=== PATIENT | female | born 1945 | race Caucasian/White ===

== ENCOUNTER 2018-07-24 18:01 | Observation (INO) | payer MEDICARE, BC ==
[2018-07-24] MEDS ORDERED: Sodium Chloride 0.9% 10 ML Syringe FLUSH PRN (18:45)
[2018-07-24] MEDS ORDERED: Sodium Chloride 0.9% 2.5 ML Syringe FLUSH PRN (18:45)
--- NOTE | 2018-07-24 18:53 | EDM.PDOC ---
ED HPI GENERAL MEDICAL PROBLEM - General Chief Complaint: Neurological Problem Stated Complaint: DIABETIC Time Seen by Provider: 07/24/18 18:37 - History of Present Illness INITIAL COMMENTS - FREE TEXT/NARRATIVE: HISTORY AND PHYSICAL: History of present illness: The patient is a 72-year-old female who lives in [place] and is here visiting her family and presents with family for confusional speech that started about 1-1/2-2 hours ago. According to the daughter she was last seen normal last evening and when the daughter came home she had already gone to bed and was asleep. The patient slept all day, which is not unusual for her, and she awoke and went and found the daughter and started speaking with confused speech about an hour and a half to 2 hours ago. The patient was moving all extremities she was ambulating without difficulty or ataxia and her speech was not slurred nor did she have a facial droop. She was saying inappropriate things like her son needs to brush her teeth and everything is fine when I ask her who the people are in the room with her. She will not specifically answer questions at one point she did say that she is not making sense. She denies any headache or chest pain and has had no shortness of breath and according to the family she hasn't not had any systemic issues. The daughter states that initially she did complain of some visual changes in her right eye which quickly resolved and she has not complained of that since. The patient is a diabetic and uses insulin and has not checked her blood sugar recently so the family thought it was maybe a blood sugar problem causing this to happen. Patient here got into the wheelchair and got out of the wheelchair got into the bed and moved easily without any distress or assistance. Due to the symptoms a stroke" was called Review of systems: As per history of present illness and below otherwise all systems reviewed and negative. Past medical history: As per history of present illness and as reviewed below otherwise noncontributory. Surgical history: As per history of present illness and as reviewed below otherwise noncontributory. Social history: No reported history of drug or alcohol abuse. Family history: As per history of present illness and as reviewed below otherwise noncontributory. Physical exam: General: Well-developed well-nourished female who is nontoxic and speaking without slurred speech. Vital signs are noted by me HEENT: Atraumatic, normocephalic, pupils reactive, negative for conjunctival pallor or scleral icterus, mucous membranes moist, throat clear, neck supple, nontender, trachea midline. Lungs: Clear to auscultation, breath sounds equal bilaterally, chest nontender. No wheezing or stridor Heart: S1S2, regular, negative for clicks, rubs, or JVD. Abdomen: Soft, nondistended, nontender. Negative for masses or hepatosplenomegaly. Negative for costovertebral tenderness. Pelvis: Stable nontender. Genitourinary: Deferred. Rectal: Deferred. Extremities: Atraumatic, negative for cords or calf pain. Neurovascular unremarkable. The patient was all extremities without defects or deficits Neuro: Awake, alert, and speaking without slurred speech. Cranial nerves II through XII unremarkable. Cerebellum unremarkable. Motor and sensory unremarkable throughout. Exam nonfocal. Patient's conversational speech is very choppy and confused and inappropriate. She strings together inappropriate sentences but does not speak any words salad. Skin: Turgor is normal and there are no overt rashes or lesions Diagnostics: NIHSS CT scan of the head EKG CBC CMP INR troponin TSH UA chest x-ray CTA of the head and neck, please see below note Therapeutics: IV O2 monitor swallow assessment per nursing aspirin I immediately discussed with the family at bedside that as the last time she was seen normal was last evening she is not a candidate for TPA. She was not seen last evening and was not seen at all throughout the course of today and she was sleeping and was only noted to have the symptoms an hour and a half to 2 hours ago. The time of onset is unclear. The family is accepting of this and we will continue with our workup. I went back to reevaluate the patient and the formal stroke scale is a 5 with the patient losing for orientation some visual and inability to describe events in the pictures. The patient is having intermittent periods of normal speech where she can straining sentences together with coherency and then she will deviate off saying statements that are not linked together and are confused. At 1912 discussed this with the neurologist at [facility] in [place], Dr. Wiggins , and he feels that despite the fact that these symptoms are stuttering she is still not a candidate for TPA as her last normal time was last evening. He recommends doing CTA of the head and neck and if that is normal and she can stay here at our hospital and if abnormal he wants to be recontacted. 2020: Case was discussed with our hospitalist Dr Vidales who is aware of the pending tests and accepts the patient for admission pending those test results being negative. CTA's and endorsed to Dr. Salinas who will check those results and alter disposition as indicated. . Impression: Acute confusional state with expressive aphasia rule out CVA Definitive disposition and diagnosis as appropriate pending reevaluation and review of above. - Related Data Allergies Allergy/AdvReac Type Severity Reaction Status Date / Time No Known Allergies Allergy Verified 07/24/18 18:50 Home Meds: Home Meds . [Unable to Verify Home Med List] 07/24/18 [History] ED ROS GENERAL - Review of Systems Review Of Systems: ROS reveals no pertinent complaints other than HPI. ED EXAM, GENERAL - Physical Exam Exam: See Below (see Dictation) Course - Vital Signs Last Recorded V/S: Last Vital Signs Temp 36.2 C 07/24/18 19:13 Pulse 93 07/24/18 19:13 Resp 20 07/24/18 19:13 BP 148/82 H 07/24/18 19:13 Pulse Ox 93 L 07/24/18 19:13 - Orders/Labs/Meds Orders: Active Orders 24 hr Category Date Time Status Blood Glucose Check, Bedside [RC] ONETIME Care 07/24/18 18:45 Active Cardiac Monitoring [RC] . DIRECTED Care 07/24/18 18:45 Active EKG Documentation Completion [RC] STAT Care 07/24/18 18:45 Active Oxygen Therapy, ED [RC] ASDIRECTED Care 07/24/18 18:45 Active Pulse Oximetry [RC] ASDIRECTED Care 07/24/18 18:45 Active Ang Head [CT] Stat Exams 07/24/18 19:17 Ordered CTA Neck W & W/O Contrast [Ang Neck] [CT] Stat Exams 07/24/18 19:17 Ordered Chest 1V Frontal [CR] Stat Exams 07/24/18 18:46 Taken Head wo Cont [CT] Stat Exams 07/24/18 18:46 Taken UA W/MICROSCOPIC [URIN] Stat Lab 07/24/18 18:46 Ordered Sodium Chloride 0.9% [Saline Flush] Med 07/24/18 18:45 Active 10 ml FLUSH ASDIRECTED PRN Sodium Chloride 0.9% [Saline Flush] Med 07/24/18 18:45 Active 2.5 ml FLUSH ASDIRECTED PRN Saline Lock Insert [OM.PC] Stat Oth 07/24/18 18:45 Ordered Medication Orders Sodium Chloride (Saline Flush) 10 ml FLUSH ASDIRECTED PRN PRN Reason: Keep Vein Open Sodium Chloride (Saline Flush) 2.5 ml FLUSH ASDIRECTED PRN PRN Reason: Keep Vein Open Labs: Laboratory Tests 07/24/18 07/24/18 07/24/18 Range/Units 18:33 18:56 18:56 WBC 13.35 H (4.0-11.0) K/uL RBC 4.10 L (4.30-5.90) M/uL Hgb 13.5 (12.0-16.0) g/dL Hct 42.6 (36.0-46.0) % MCV 103.9 H (80.0-98.0) fL MCH 32.9 H (27.0-32.0) pg MCHC 31.7 (31.0-37.0) g/dL RDW Std Deviation 61.1 (28.0-62.0) fl RDW Coeff of Rosanna 16 H (11.0-15.0) % Plt Count 190 (150-400) K/uL MPV 10.10 (7.40-12.00) fL Neut % (Auto) 34.3 L (48.0-80.0) % Lymph % (Auto) 58.1 H (16.0-40.0) % Converse % (Auto) 5.7 (0.0-15.0) % Eos % (Auto) 1.5 (0.0-7.0) % Baso % (Auto) 0.4 (0.0-1.5) % Neut # (Auto) 4.6 (1.4-5.7) K/uL Lymph # (Auto) 7.8 H (0.6-2.4) K/uL Converse # (Auto) 0.8 (0.0-0.8) K/uL Eos # (Auto) 0.2 (0.0-0.7) K/uL Baso # (Auto) 0.1 (0.0-0.1) K/uL Nucleated RBC % 0.0 /100WBC Nucleated RBCs # 0 K/uL INR 0.94 Sodium (136-145) mmol/L Potassium (3.5-5.1) mmol/L Chloride (98-107) mmol/L Carbon Dioxide (21.0-32.0) mmol/L BUN (7.0-18.0) mg/dL Creatinine (0.6-1.0) mg/dL Est Cr Clr Drug Dosing Estimated GFR (MDRD) ml/min Glucose (74-106) mg/dL POC Glucose 227 H (60-110) mg/dL Calcium (8.5-10.1) mg/dL Total Bilirubin (0.2-1.0) mg/dL AST (15-37) IU/L ALT (14-63) IU/L Alkaline Phosphatase (46-116) U/L Troponin I (0.000-0.056) ng/mL Total Protein (6.4-8.2) g/dL Albumin (3.4-5.0) g/dL Globulin (2.0-3.5) g/dL Albumin/Globulin Ratio (1.3-2.8) TSH 3rd Generation (0.36-3.74) uIU/mL 07/24/18 Range/Units 18:56 WBC (4.0-11.0) K/uL RBC (4.30-5.90) M/uL Hgb (12.0-16.0) g/dL Hct (36.0-46.0) % MCV (80.0-98.0) fL MCH (27.0-32.0) pg MCHC (31.0-37.0) g/dL RDW Std Deviation (28.0-62.0) fl RDW Coeff of Rosanna (11.0-15.0) % Plt Count (150-400) K/uL MPV (7.40-12.00) fL Neut % (Auto) (48.0-80.0) % Lymph % (Auto) (16.0-40.0) % Converse % (Auto) (0.0-15.0) % Eos % (Auto) (0.0-7.0) % Baso % (Auto) (0.0-1.5) % Neut # (Auto) (1.4-5.7) K/uL Lymph # (Auto) (0.6-2.4) K/uL Converse # (Auto) (0.0-0.8) K/uL Eos # (Auto) (0.0-0.7) K/uL Baso # (Auto) (0.0-0.1) K/uL Nucleated RBC % /100WBC Nucleated RBCs # K/uL INR Sodium 144 (136-145) mmol/L Potassium 3.9 (3.5-5.1) mmol/L Chloride 105 (98-107) mmol/L Carbon Dioxide 30.2 (21.0-32.0) mmol/L BUN 17 (7.0-18.0) mg/dL Creatinine 0.9 (0.6-1.0) mg/dL Est Cr Clr Drug Dosing TNP Estimated GFR (MDRD) > 60.0 ml/min Glucose 240 H (74-106) mg/dL POC Glucose (60-110) mg/dL Calcium 9.0 (8.5-10.1) mg/dL Total Bilirubin 0.3 (0.2-1.0) mg/dL AST 28 (15-37) IU/L ALT 62 (14-63) IU/L Alkaline Phosphatase 138 H (46-116) U/L Troponin I < 0.050 (0.000-0.056) ng/mL Total Protein 6.6 (6.4-8.2) g/dL Albumin 3.4 (3.4-5.0) g/dL Globulin 3.2 (2.0-3.5) g/dL Albumin/Globulin Ratio 1.1 L (1.3-2.8) TSH 3rd Generation 1.37 (0.36-3.74) uIU/mL Meds: Medications Generic Name Dose Route Start Last Admin Trade Name Freq PRN Reason Stop Dose Admin Sodium Chloride 10 ml 07/24/18 18:45 Saline Flush FLUSH ASDIRECTED PRN Keep Vein Open Sodium Chloride 2.5 ml 07/24/18 18:45 Saline Flush FLUSH ASDIRECTED PRN Keep Vein Open Discontinued Medications Generic Name Dose Route Start Last Admin Trade Name Freq PRN Reason Stop Dose Admin Aspirin 325 mg 07/24/18 19:38 07/24/18 19:42 Aspirin PO 07/24/18 19:39 325 mg ONETIME ONE Administration Departure - Departure Time of Disposition: 20:32 Disposition: Refer to Observation Condition: Good Clinical Impression: Confusional state, Expressive aphasia - Discharge Information Referrals: PCP,None [Primary Care Provider] - Forms: ED Department Discharge - My Orders Last 24 Hours: My Active Orders 07/24/18 18:45 Blood Glucose Check, Bedside [RC] ONETIME Cardiac Monitoring [RC] . DIRECTED EKG Documentation Completion [RC] STAT Oxygen Therapy, ED [RC] ASDIRECTED Pulse Oximetry [RC] ASDIRECTED Sodium Chloride 0.9% [Saline Flush] 10 ml FLUSH ASDIRECTED PRN Sodium Chloride 0.9% [Saline Flush] 2.5 ml FLUSH ASDIRECTED PRN Saline Lock Insert [OM.PC] Stat 07/24/18 18:46 Chest 1V Frontal [CR] Stat Head wo Cont [CT] Stat UA W/MICROSCOPIC [URIN] Stat 07/24/18 19:17 Ang Head [CT] Stat CTA Neck W & W/O Contrast [Ang Neck] [CT] Stat - Assessment/Plan Last 24 Hours: My Active Orders 07/24/18 18:45 Blood Glucose Check, Bedside [RC] ONETIME Cardiac Monitoring [RC] . DIRECTED EKG Documentation Completion [RC] STAT Oxygen Therapy, ED [RC] ASDIRECTED Pulse Oximetry [RC] ASDIRECTED Sodium Chloride 0.9% [Saline Flush] 10 ml FLUSH ASDIRECTED PRN Sodium Chloride 0.9% [Saline Flush] 2.5 ml FLUSH ASDIRECTED PRN Saline Lock Insert [OM.PC] Stat 07/24/18 18:46 Chest 1V Frontal [CR] Stat Head wo Cont [CT] Stat UA W/MICROSCOPIC [URIN] Stat 07/24/18 19:17 Ang Head [CT] Stat CTA Neck W & W/O Contrast [Ang Neck] [CT] Stat
[2018-07-24] MEDS ORDERED: Aspirin 325 MG Tab PO ONE (19:38)
[2018-07-24 19:44] LABS: CHLORIDE,CL 105 mmol/L (98-107); SODIUM,NA 144 mmol/L (136-145)
[2018-07-24] MEDS ORDERED: Iopamidol 755 MG/ML 500 ML Multipack Bottle IVPUSH STA (22:06)
[2018-07-25] MEDS ORDERED: Labetalol 100 MG/20 ML MDV IVPUSH PRN (01:25)
[2018-07-25] MEDS ORDERED: Magnesium Sulfate/Water 2 GM in Premix Bag 1 BAG IV ONE (02:22)
[2018-07-25] MEDS ORDERED: Magnesium Sulfate/Water 50 ML ONE (02:30)
[2018-07-25] MEDS: Insulin Aspart 100 Units/ML 3 ML Pen SUBCUT SCH ×2 (06:41→13:32)
[2018-07-25 08:24] LABS: CHLORIDE,CL 104 mmol/L (98-107); SODIUM,NA 139 mmol/L (136-145)
[2018-07-25] MEDS ORDERED: atorvaSTATin 40 MG Tab PO SCH (09:00)
[2018-07-25] MEDS ORDERED: Insulin Detemir 100 Units/ML 3 ML Pen SUBCUT SCH (09:00)
[2018-07-25] MEDS ORDERED: Omeprazole 20 MG Cap.CR PO SCH (13:00)
[2018-07-25] MEDS ORDERED: Latanoprost 0.005% Ophth Soln 2.5 ML Bottle EYEBOTH SCH (13:00)
[2018-07-25] MEDS ORDERED: FEXOFENADINE 30 MG PO SCH (13:00)
[2018-07-25] MEDS ORDERED: Aspirin 81 MG Tab.Chew PO SCH (13:00)
--- NOTE | 2018-07-25 14:51 | PCM.HP ---
H&P History of Present Illness - General Date of Service: 07/25/18 Admit Problem/Dx: Admission Diagnosis/Problem Admission Diagnosis/Problem Expressive aphasia Source of Information: Patient History Limitations: Reports: No Limitations - History of Present Illness Initial Comments - Free Text/Narative: Patient 72 y old female who came here 2 weeks ago from [place] to visit her son , woke up yesterday afternoon confused , unable to find her words and her speach did not make sense . She was saying words like: my son needs to come to brush my teeth" . She did not have any numbness or weakness but c/o transient problem with her vision in the rt eye. In ER the stroke code was called. ER doctor discussed patient with Neurologist at [facility] was she was not a candidate for TPA and she was admitted to the floor to have work up for stroke Onset of Symptoms: Reports: Sudden Duration of Symptoms: Reports: Hour(s): Location: Reports: Head Bilateral Upper Pain Score (Numeric/FACES): 0 - Related Data Allergies/Adverse Reactions: Allergies Allergy/AdvReac Type Severity Reaction Status Date / Time No Known Allergies Allergy Verified 07/24/18 18:50 Home Medications: Home Meds Aspirin 81 mg PO DAILY 07/24/18 [History] Fexofenadine [Jerrica] 0 mg PO DAILY 07/24/18 [History] Insulin Aspart [Novolog] 30 unit SQ TIDMEALS 07/24/18 [History] Insulin Detemir [Levemir] 55 unit SUBCUT DAILY 07/24/18 [History] Lansoprazole [Prevacid] 30 mg PO DAILY 07/24/18 [History] Latanoprost 2.5 ml OP ASDIRECTED 07/24/18 [History] Levothyroxine 125 mcg PO ACBREAKFAST 07/24/18 [History] Liraglutide [Victoza 3-Stanley] 1.8 mg .XX ASDIRECTED 07/24/18 [History] Lisinopril 2.5 mg PO DAILY 07/24/18 [History] Primadone 50 mg PO BID 07/24/18 [History] QUEtiapine [SEROquel] 25 mg PO BEDTIME 07/24/18 [History] Venlafaxine [Effexor XR] 150 mg PO BEDTIME 07/24/18 [History] atorvaSTATin [Lipitor] 80 mg PO QID 07/24/18 [History] Past Medical History HEENT History: Reports: Cataract, Impaired Vision Musculoskeletal History: Reports: Amputation Other Musculoskeletal History: right middle finger Endocrine/Metabolic History: Reports: Diabetes, Type I - Past Surgical History Female Surgical History: Reports: Hysterectomy Social & Family History - Family History Family Medical History: Noncontributory - Tobacco Use Smoking Status *Q: Never Smoker - Caffeine Use Caffeine Use: Reports: Coffee - Recreational Drug Use Recreational Drug Use: No H&P Review of Systems - Review of Systems: Review Of Systems: See Below General: Reports: No Symptoms HEENT: Reports: No Symptoms Pulmonary: Reports: No Symptoms Cardiovascular: Reports: No Symptoms Gastrointestinal: Reports: No Symptoms Genitourinary: Reports: No Symptoms Musculoskeletal: Reports: No Symptoms Skin: Reports: No Symptoms Psychiatric: Reports: No Symptoms Neurological: Reports: Confusion, Trouble Speaking Hematologic/Lymphatic: Reports: No Symptoms Immunologic: Reports: No Symptoms Exam - Exam Exam: See Below - Vital Signs Vital Signs: Last Vital Signs Temp 96.0 F 07/25/18 12:00 Pulse 86 07/25/18 12:00 Resp 16 07/25/18 12:00 BP 137/65 07/25/18 12:00 Pulse Ox 92 L 07/25/18 12:00 Weight: 181 lb 14.102 oz - Exam General: Alert, Oriented HEENT: Conjunctiva Clear, EOMI Neck: Supple, Trachea Midline Lungs: Clear to Auscultation Cardiovascular: Regular Rate, Regular Rhythm, Normal S1, Normal S2 GI/Abdominal Exam: Normal Bowel Sounds, Non-Tender Back Exam: Normal Inspection Extremities: Other (middle finger amputation rt hand) Skin: Warm, Dry Neurological: Cranial Nerves Intact Neuro Extensive - Mental Status: Alert, Oriented x3 Neuro Extensive - Motor, Sensory, Reflexes: CN II-XII Intact, Normal Gait, Normal Reflexes, Expressive Aphasia, Tremor. No: Tongue Deviation (L), Tongue Deviation (R), Facial palsy (L), Facial Palsy (R), Abnormal Finger to Nose, Motor/Sensory Deficits Psychiatric: Alert, Normal Affect - Patient Data Lab Results Last 24 hrs: Laboratory Results - last 24 hr 07/24/18 07/24/18 07/24/18 Range/Units 18:33 18:56 18:56 WBC 13.35 H (4.0-11.0) K/uL RBC 4.10 L (4.30-5.90) M/uL Hgb 13.5 (12.0-16.0) g/dL Hct 42.6 (36.0-46.0) % MCV 103.9 H (80.0-98.0) fL MCH 32.9 H (27.0-32.0) pg MCHC 31.7 (31.0-37.0) g/dL RDW Std Deviation 61.1 (28.0-62.0) fl RDW Coeff of Rosanna 16 H (11.0-15.0) % Plt Count 190 (150-400) K/uL MPV 10.10 (7.40-12.00) fL Neut % (Auto) 34.3 L (48.0-80.0) % Lymph % (Auto) 58.1 H (16.0-40.0) % Gordon % (Auto) 5.7 (0.0-15.0) % Eos % (Auto) 1.5 (0.0-7.0) % Baso % (Auto) 0.4 (0.0-1.5) % Neut # (Auto) 4.6 (1.4-5.7) K/uL Lymph # (Auto) 7.8 H (0.6-2.4) K/uL Gordon # (Auto) 0.8 (0.0-0.8) K/uL Eos # (Auto) 0.2 (0.0-0.7) K/uL Baso # (Auto) 0.1 (0.0-0.1) K/uL Nucleated RBC % 0.0 /100WBC Nucleated RBCs # 0 K/uL INR 0.94 Sodium (136-145) mmol/L Potassium (3.5-5.1) mmol/L Chloride (98-107) mmol/L Carbon Dioxide (21.0-32.0) mmol/L BUN (7.0-18.0) mg/dL Creatinine (0.6-1.0) mg/dL Est Cr Clr Drug Dosing Estimated GFR (MDRD) ml/min Glucose (74-106) mg/dL POC Glucose 227 H (60-110) mg/dL Calcium (8.5-10.1) mg/dL Magnesium (1.8-2.4) mg/dL Total Bilirubin (0.2-1.0) mg/dL AST (15-37) IU/L ALT (14-63) IU/L Alkaline Phosphatase (46-116) U/L Troponin I (0.000-0.056) ng/mL Total Protein (6.4-8.2) g/dL Albumin (3.4-5.0) g/dL Globulin (2.0-3.5) g/dL Albumin/Globulin Ratio (1.3-2.8) Triglycerides (0-200) mg/dL Cholesterol (50-200) mg/dL LDL Cholesterol, Calc (60-180) mg/dL VLDL Cholesterol (5-55) mg/dL HDL Cholesterol (40-60) mg/dL Cholesterol/HDL Ratio (3.3-6.0) TSH 3rd Generation (0.36-3.74) uIU/mL Urine Color Urine Appearance Urine pH (5.0-8.0) Ur Specific [place] (1.001-1.035) Urine Protein (NEGATIVE) mg/dL Urine Glucose (UA) (NEGATIVE) mg/dL Urine Ketones (NEGATIVE) mg/dL Urine Occult Blood (NEGATIVE) Urine Nitrite (NEGATIVE) Urine Bilirubin (NEGATIVE) Urine Urobilinogen (<2.0) EU/dL Ur Leukocyte Esterase (NEGATIVE) Urine RBC (0-2/HPF) Urine WBC (0-5/HPF) Ur Epithelial Cells (NONE-FEW) Urine Bacteria (NEGATIVE) Urine Mucus (NONE-MOD) 07/24/18 07/24/18 07/25/18 Range/Units 18:56 18:56 00:48 WBC (4.0-11.0) K/uL RBC (4.30-5.90) M/uL Hgb (12.0-16.0) g/dL Hct (36.0-46.0) % MCV (80.0-98.0) fL MCH (27.0-32.0) pg MCHC (31.0-37.0) g/dL RDW Std Deviation (28.0-62.0) fl RDW Coeff of Rosanna (11.0-15.0) % Plt Count (150-400) K/uL MPV (7.40-12.00) fL Neut % (Auto) (48.0-80.0) % Lymph % (Auto) (16.0-40.0) % Gordon % (Auto) (0.0-15.0) % Eos % (Auto) (0.0-7.0) % Baso % (Auto) (0.0-1.5) % Neut # (Auto) (1.4-5.7) K/uL Lymph # (Auto) (0.6-2.4) K/uL Gordon # (Auto) (0.0-0.8) K/uL Eos # (Auto) (0.0-0.7) K/uL Baso # (Auto) (0.0-0.1) K/uL Nucleated RBC % /100WBC Nucleated RBCs # K/uL INR Sodium 144 (136-145) mmol/L Potassium 3.9 (3.5-5.1) mmol/L Chloride 105 (98-107) mmol/L Carbon Dioxide 30.2 (21.0-32.0) mmol/L BUN 17 (7.0-18.0) mg/dL Creatinine 0.9 (0.6-1.0) mg/dL Est Cr Clr Drug Dosing TNP Estimated GFR (MDRD) > 60.0 ml/min Glucose 240 H (74-106) mg/dL POC Glucose (60-110) mg/dL Calcium 9.0 (8.5-10.1) mg/dL Magnesium 1.5 L (1.8-2.4) mg/dL Total Bilirubin 0.3 (0.2-1.0) mg/dL AST 28 (15-37) IU/L ALT 62 (14-63) IU/L Alkaline Phosphatase 138 H (46-116) U/L Troponin I < 0.050 (0.000-0.056) ng/mL Total Protein 6.6 (6.4-8.2) g/dL Albumin 3.4 (3.4-5.0) g/dL Globulin 3.2 (2.0-3.5) g/dL Albumin/Globulin Ratio 1.1 L (1.3-2.8) Triglycerides (0-200) mg/dL Cholesterol (50-200) mg/dL LDL Cholesterol, Calc (60-180) mg/dL VLDL Cholesterol (5-55) mg/dL HDL Cholesterol (40-60) mg/dL Cholesterol/HDL Ratio (3.3-6.0) TSH 3rd Generation 1.37 (0.36-3.74) uIU/mL Urine Color YELLOW Urine Appearance CLEAR Urine pH 7.0 (5.0-8.0) Ur Specific [place] 1.010 (1.001-1.035) Urine Protein NEGATIVE (NEGATIVE) mg/dL Urine Glucose (UA) NEGATIVE (NEGATIVE) mg/dL Urine Ketones NEGATIVE (NEGATIVE) mg/dL Urine Occult Blood NEGATIVE (NEGATIVE) Urine Nitrite NEGATIVE (NEGATIVE) Urine Bilirubin NEGATIVE (NEGATIVE) Urine Urobilinogen 0.2 (<2.0) EU/dL Ur Leukocyte Esterase NEGATIVE (NEGATIVE) Urine RBC 0-1 (0-2/HPF) Urine WBC 1-3 (0-5/HPF) Ur Epithelial Cells FEW (NONE-FEW) Urine Bacteria RARE (NEGATIVE) Urine Mucus LIGHT (NONE-MOD) 07/25/18 07/25/18 07/25/18 Range/Units 05:20 05:20 05:20 WBC 13.34 H (4.0-11.0) K/uL RBC 3.84 L (4.30-5.90) M/uL Hgb 12.4 (12.0-16.0) g/dL Hct 39.3 (36.0-46.0) % MCV 102.3 H (80.0-98.0) fL MCH 32.3 H (27.0-32.0) pg MCHC 31.6 (31.0-37.0) g/dL RDW Std Deviation 59.9 (28.0-62.0) fl RDW Coeff of Rosanna 16 H (11.0-15.0) % Plt Count 186 (150-400) K/uL MPV 10.30 (7.40-12.00) fL Neut % (Auto) 33.6 L (48.0-80.0) % Lymph % (Auto) 58.0 H (16.0-40.0) % Gordon % (Auto) 6.4 (0.0-15.0) % Eos % (Auto) 1.6 (0.0-7.0) % Baso % (Auto) 0.4 (0.0-1.5) % Neut # (Auto) 4.5 (1.4-5.7) K/uL Lymph # (Auto) 7.7 H (0.6-2.4) K/uL Gordon # (Auto) 0.9 H (0.0-0.8) K/uL Eos # (Auto) 0.2 (0.0-0.7) K/uL Baso # (Auto) 0.1 (0.0-0.1) K/uL Nucleated RBC % 0.0 /100WBC Nucleated RBCs # 0 K/uL INR Sodium 139 (136-145) mmol/L Potassium 3.6 (3.5-5.1) mmol/L Chloride 104 (98-107) mmol/L Carbon Dioxide 26.9 (21.0-32.0) mmol/L BUN 13 (7.0-18.0) mg/dL Creatinine 0.7 (0.6-1.0) mg/dL Est Cr Clr Drug Dosing 72.72 Estimated GFR (MDRD) > 60.0 ml/min Glucose 83 (74-106) mg/dL POC Glucose (60-110) mg/dL Calcium 8.5 (8.5-10.1) mg/dL Magnesium 2.1 (1.8-2.4) mg/dL Total Bilirubin (0.2-1.0) mg/dL AST (15-37) IU/L ALT (14-63) IU/L Alkaline Phosphatase (46-116) U/L Troponin I (0.000-0.056) ng/mL Total Protein (6.4-8.2) g/dL Albumin (3.4-5.0) g/dL Globulin (2.0-3.5) g/dL Albumin/Globulin Ratio (1.3-2.8) Triglycerides 185 (0-200) mg/dL Cholesterol 188 (50-200) mg/dL LDL Cholesterol, Calc 107 (60-180) mg/dL VLDL Cholesterol 37 (5-55) mg/dL HDL Cholesterol 44 (40-60) mg/dL Cholesterol/HDL Ratio 4.3 (3.3-6.0) TSH 3rd Generation (0.36-3.74) uIU/mL Urine Color Urine Appearance Urine pH (5.0-8.0) Ur Specific [place] (1.001-1.035) Urine Protein (NEGATIVE) mg/dL Urine Glucose (UA) (NEGATIVE) mg/dL Urine Ketones (NEGATIVE) mg/dL Urine Occult Blood (NEGATIVE) Urine Nitrite (NEGATIVE) Urine Bilirubin (NEGATIVE) Urine Urobilinogen (<2.0) EU/dL Ur Leukocyte Esterase (NEGATIVE) Urine RBC (0-2/HPF) Urine WBC (0-5/HPF) Ur Epithelial Cells (NONE-FEW) Urine Bacteria (NEGATIVE) Urine Mucus (NONE-MOD) 07/25/18 07/25/18 Range/Units 06:37 12:19 WBC (4.0-11.0) K/uL RBC (4.30-5.90) M/uL Hgb (12.0-16.0) g/dL Hct (36.0-46.0) % MCV (80.0-98.0) fL MCH (27.0-32.0) pg MCHC (31.0-37.0) g/dL RDW Std Deviation (28.0-62.0) fl RDW Coeff of Rosanna (11.0-15.0) % Plt Count (150-400) K/uL MPV (7.40-12.00) fL Neut % (Auto) (48.0-80.0) % Lymph % (Auto) (16.0-40.0) % Gordon % (Auto) (0.0-15.0) % Eos % (Auto) (0.0-7.0) % Baso % (Auto) (0.0-1.5) % Neut # (Auto) (1.4-5.7) K/uL Lymph # (Auto) (0.6-2.4) K/uL Gordon # (Auto) (0.0-0.8) K/uL Eos # (Auto) (0.0-0.7) K/uL Baso # (Auto) (0.0-0.1) K/uL Nucleated RBC % /100WBC Nucleated RBCs # K/uL INR Sodium (136-145) mmol/L Potassium (3.5-5.1) mmol/L Chloride (98-107) mmol/L Carbon Dioxide (21.0-32.0) mmol/L BUN (7.0-18.0) mg/dL Creatinine (0.6-1.0) mg/dL Est Cr Clr Drug Dosing Estimated GFR (MDRD) ml/min Glucose (74-106) mg/dL POC Glucose 96 273 H (60-110) mg/dL Calcium (8.5-10.1) mg/dL Magnesium (1.8-2.4) mg/dL Total Bilirubin (0.2-1.0) mg/dL AST (15-37) IU/L ALT (14-63) IU/L Alkaline Phosphatase (46-116) U/L Troponin I (0.000-0.056) ng/mL Total Protein (6.4-8.2) g/dL Albumin (3.4-5.0) g/dL Globulin (2.0-3.5) g/dL Albumin/Globulin Ratio (1.3-2.8) Triglycerides (0-200) mg/dL Cholesterol (50-200) mg/dL LDL Cholesterol, Calc (60-180) mg/dL VLDL Cholesterol (5-55) mg/dL HDL Cholesterol (40-60) mg/dL Cholesterol/HDL Ratio (3.3-6.0) TSH 3rd Generation (0.36-3.74) uIU/mL Urine Color Urine Appearance Urine pH (5.0-8.0) Ur Specific [place] (1.001-1.035) Urine Protein (NEGATIVE) mg/dL Urine Glucose (UA) (NEGATIVE) mg/dL Urine Ketones (NEGATIVE) mg/dL Urine Occult Blood (NEGATIVE) Urine Nitrite (NEGATIVE) Urine Bilirubin (NEGATIVE) Urine Urobilinogen (<2.0) EU/dL Ur Leukocyte Esterase (NEGATIVE) Urine RBC (0-2/HPF) Urine WBC (0-5/HPF) Ur Epithelial Cells (NONE-FEW) Urine Bacteria (NEGATIVE) Urine Mucus (NONE-MOD) Result Diagrams: 07/25/18 05:20 07/25/18 05:20 EKG INTERPRETATION Rhythm: NSR - Problem List (1) CVA (cerebral vascular accident) SNOMED Code(s): 808771093 ICD Code: I63.9 - CEREBRAL INFARCTION, UNSPECIFIED Status: Acute (2) Expressive aphasia SNOMED Code(s): 692024671 ICD Code: R47.01 - APHASIA Status: Acute (3) Diabetes mellitus type 2, insulin dependent SNOMED Code(s): 873800891 ICD Code: E11.9 - TYPE 2 DIABETES MELLITUS WITHOUT COMPLICATIONS; Z79.4 - JAIL (CURRENT) USE OF INSULIN Status: Acute (4) Hypertension SNOMED Code(s): 46988900 ICD Code: I10 - ESSENTIAL (PRIMARY) HYPERTENSION Status: Acute (5) Hyperlipidemia SNOMED Code(s): 79380234 ICD Code: E78.5 - HYPERLIPIDEMIA, UNSPECIFIED Status: Acute Problem List Initiated/Reviewed/Updated: Yes Orders Last 24hrs: Active Orders 24 hr Category Date Time Status Patient Status [ADT] Stat ADT 07/24/18 20:33 Active Accu Check [Blood Glucose Check, Bedside] [RC] Care 07/25/18 07:30 Active QIDACANDBED Blood Glucose Check, Bedside [RC] ONETIME Care 07/24/18 18:45 Active EKG Documentation Completion [RC] STAT Care 07/24/18 18:45 Active Modified [place] Swallow Screen [Nursing Bedside Swallow Care 07/25/18 00:08 Active Screen] [RC] ASDIRECTED Neuro Check [RC] Q2H Care 07/25/18 00:08 Active Oxygen Therapy, ED [RC] ASDIRECTED Care 07/24/18 18:45 Active Pulse Oximetry [RC] ASDIRECTED Care 07/24/18 18:45 Active Ready for Discharge [RC] PER UNIT ROUTINE Care 07/25/18 12:50 Active Telemetry Monitoring [Cardiac Monitoring] [RC] Q8H Care 07/24/18 23:01 Active Consult to Speech Language Pathology [LIGHT ADJUSTER Evaluation Cons 07/25/18 07:50 Active and Treatment] [CONS] Routine OT Evaluation and Treatment [CONS] Routine Cons 07/25/18 09:19 Active PT Evaluation and Treatment [CONS] Routine Cons 07/25/18 09:19 Active ADA Diabetic [[place] [employer] Diet] [DIET Diet 07/25/18 Lunch Active ] Ang Head [CT] Stat Exams 07/24/18 19:17 Taken CTA Neck W & W/O Contrast [Ang Neck] [CT] Stat Exams 07/24/18 19:17 Taken Carotid Comp [US] Routine Exams 07/25/18 10:00 Taken Chest 1V Frontal [CR] Stat Exams 07/24/18 18:46 Taken Echo Comp wo Cont [US] Routine Exams 07/25/18 00:13 Taken Head wo Cont [CT] Stat Exams 07/24/18 18:46 Taken UA W/MICROSCOPIC [URIN] Stat Lab 07/25/18 00:48 Ordered Aspirin Med 07/25/18 13:00 Active 81 mg PO DAILY Insulin Aspart [NovoLOG] Med 07/25/18 17:30 Active 30 unit SUBCUT TIDMEALS Insulin Aspart [NovoLOG] Med 07/25/18 07:30 Active See Protocol SUBCUT QIDACANDBED Insulin Detemir [Levemir] Med 07/25/18 09:00 Active 55 unit SUBCUT DAILY Labetalol [Normodyne] Med 07/25/18 01:25 Active 20 mg IVPUSH Q4H PRN Latanoprost [Xalatan 0.005% Ophth Soln] Med 07/25/18 13:00 Active 2.5 ml EYEBOTH ASDIRECTED Levothyroxine Med 07/26/18 07:30 Active 125 mcg PO ACBREAKFAST Lisinopril [Prinivil] Med 07/26/18 09:00 Active 2.5 mg PO DAILY Omeprazole Med 07/25/18 13:00 Active 20 mg PO ACBREAKFAST Patient's Own Medication [Ptom] Med 07/25/18 13:00 Active 1 each .XX ASDIRECTED Patient's Own Medication [Ptom] Med 07/25/18 13:00 Active 1 each PO DAILY QUEtiapine [SEROquel] Med 07/25/18 21:00 Active 25 mg PO BEDTIME Sodium Chloride 0.9% [Saline Flush] Med 07/24/18 18:45 Active 10 ml FLUSH ASDIRECTED PRN Sodium Chloride 0.9% [Saline Flush] Med 07/24/18 18:45 Active 2.5 ml FLUSH ASDIRECTED PRN atorvaSTATin [Lipitor] Med 07/26/18 09:00 Active 40 mg PO DAILY Saline Lock Insert [OM.PC] Stat Oth 07/24/18 18:45 Ordered Medication Orders Aspirin (Aspirin) 81 mg PO DAILY [facility] Last Admin: 07/25/18 13:54 Dose: 81 mg Atorvastatin Calcium (Lipitor) 40 mg PO DAILY [facility] Insulin Aspart (Novolog) 0 unit SUBCUT QIDACANDBED [facility]; Protocol Last Admin: 07/25/18 13:32 Dose: Admin: 07/25/18 06:41 Dose: Not Given Insulin Aspart (Novolog) 30 unit SUBCUT TIDMEALS [facility] Insulin Detemir (Levemir) 55 unit SUBCUT DAILY [facility] Last Admin: 07/25/18 13:09 Dose: 52 units Labetalol HCl (Normodyne) 20 mg IVPUSH Q4H PRN; Protocol PRN Reason: Hypertension Latanoprost (Xalatan 0.005% Ophth Soln) 2.5 ml EYEBOTH ASDIRECTED [facility] Levothyroxine Sodium (Levothyroxine) 125 mcg PO ACBREAKFAST [facility] Lisinopril (Prinivil) 2.5 mg PO DAILY JYOTI Omeprazole (Omeprazole) 20 mg PO ACBREAKFAST [facility] Last Admin: 07/25/18 13:54 Dose: 20 mg Fexofenadine [ (Jerrica] 30 Mg) 1 each PO DAILY [facility] Last Admin: 07/25/18 13:58 Dose: Liraglutide 1.8 Mg 1 each .XX ASDIRECTED [facility] Quetiapine Fumarate (Seroquel) 25 mg PO BEDTIME [facility] Sodium Chloride (Saline Flush) 10 ml FLUSH ASDIRECTED PRN PRN Reason: Keep Vein Open Sodium Chloride (Saline Flush) 2.5 ml FLUSH ASDIRECTED PRN PRN Reason: Keep Vein Open Assessment/Plan Comment:: Expressive aphasia/cva We'll admit patient to medical floor, telemetry, neuro check every 2 hours, and aspirin 325 mg by mouth daily, atorvastatin 80 mg by mouth was given last night when patient arrived on the floor and will continue patient with atorvastatin 40 mg by mouth daily, lipid profile in in the morning, echo cardiac, hemoglobin A1c CT angiogram neck and head. PT OT over evaluation We'll keep blood pressure elevated and will treat only if blood pressure is more than 220/110. Nothing by mouth, swallowing evaluation by nurse at bedside. For diabetes and put the patient on insulin sliding scale. If patient able to passed a swallowing evaluation will put patient on diabetic diet and to call speech and swallow evaluation consult, and was restarted patient on her home insulin: Insulin detemir 52 units in daily and insulin aspart 30 units with meals DVT prophylaxis Lovenox 40 mg subcutaneously every 24 hours
[2018-07-25] MEDS ORDERED: Insulin Aspart 100 Units/ML 3 ML Pen SUBCUT SCH (17:30)
--- NOTE | 2018-07-25 17:52 | ECHO ---
The echocardiogram report can be seen in this patient's EMR (Electronic Medical Record) in the Reports section. The echocardiogram report has also been scanned into PACS and can be seen there as well. SHARITA
--- NOTE | 2018-07-25 20:34 | CT ---
EXAM DATE: 07/24/18 PATIENT'S AGE: 72 Patient: CHYNA LEE Facility: [place], [place] Site . Site : 1945 Study: CT Head STROKE PROTOCOL -07/24/2018 6:50:43 PM Ordering Physician: Henry Final Report: INDICATION: Confusion TECHNIQUE: CT head without contrast. COMPARISON: None FINDINGS: CSF spaces: Within normal limits for age. Brain parenchyma: The sellers-white differentiation is normal. No sign of mass, hemorrhage, or midline shift. Skull base and calvarium: The visualized paranasal sinuses and mastoid air cells demonstrate no acute or significant findings. The visualized orbits are grossly unremarkable. No skull fractures. IMPRESSION: Unremarkable noncontrast head CT. Dictated by Hermann Herrera MD @ 07/24/2018 7:08:40 PM Dictated by: Hermann Herrera MD @ 07/24/2018 19:08:49 (Electronic Signature) Report Signed by Proxy. [facility]ER HOSPITALDennis
--- NOTE | 2018-07-25 20:35 | CR ---
EXAM DATE: 07/24/18 PATIENT'S AGE: 72 Patient: CHYNA LEE Facility: [place], [place] Site . Site : 1945 Study: XRay Chest [id number]/23/2018 6:55:09 PM Ordering Physician: Doctor Cochran Final Report: INDICATION: stroke code, sob TECHNIQUE: Chest 1 view. COMPARISON: None. FINDINGS: Cardiovascular and mediastinum: Heart size and vasculature are normal in caliber and appearance. Mediastinum is within normal limits. Lungs and pleural space: Lungs are clear. No sign of infiltrate or mass. No sign of pleural effusion. No pneumothorax. Bones and soft tissues: No significant findings. IMPRESSION: Unremarkable chest. Dictated by: Hermann Herrera MD @ 07/24/2018 19:10:00 (Electronic Signature) Report Signed by Proxy. MTDDennis
--- NOTE | 2018-07-25 20:50 | CT ---
EXAM DATE: 07/24/18 PATIENT'S AGE: 72 Patient: CHYNA LEE Facility: [place], [place] Site . Site : 1945 Study: CT Head Angio [id number]/23/2018 9:01:29 PM Ordering Physician: Henry Aburto Final Report: INDICATION: Stroke-like symptoms. TECHNIQUE: CTA of the head and neck was performed after the administration of intravenous contrast. Multiplanar Maximum Intensity Projections (MIPs) were created on a separate workstation at the request of the referring physician. COMPARISON: None available. FINDINGS: Angiographic findings: The aortic arch is mildly atherosclerotic. The configuration of the brachiocephalic vessels is typical. The subclavian and innominate arteries are normal. There is a kink in the mid right cervical internal carotid artery that causes approximately 75 percent luminal stenosis. The cervical left vertebral artery is also markedly tortuous with a 360 degree loop. The common, external, and cervical internal carotid arteries are otherwise unremarkable. The intracranial internal carotid arteries are normal. An anterior communicating artery is well visualized and is normal. The anterior and middle cerebral arteries are normal. The vertebral arteries are right dominant. There is mild atherosclerotic calcification of the proximal right vertebral artery without significant stenosis. The vertebral arteries are otherwise normal. The intracranial posterior circulation is normal. There is no aneurysm or vascular malformation. Deep cerebral veins and dural venous sinuses are unremarkable. Non-angiographic findings: Ventricles are of normal size and morphology. No mass effect or midline shift is present. The visualized portions of the orbits are normal. There is no cervical lymphadenopathy. The thyroid and salivary glands are normal. The muscles of the neck are normal. Fascial planes are preserved and the deep spaces of the neck are normal. The visualized airway is widely patent. The visualized lungs are clear. The paranasal sinuses and mastoid air cells are clear. There are no suspicious lytic or blastic lesions. IMPRESSION: A kink in the mid right cervical internal carotid artery causes approximately 75 percent luminal stenosis. Otherwise no significant stenosis or occlusion of the cervical or intracranial arteries. Please note that all CT scans at this facility use dose modulation, iterative reconstruction, and/or weight-based dosing when appropriate to reduce radiation dose to as low as reasonably achievable. Dictated by Castro Figueroa MD @ Jul 24 2018 9:54PM (Electronic Signature) Report Signed by Proxy. JOSED
[2018-07-25] MEDS ORDERED: QUEtiapine 25 MG Tab PO SCH (21:00)
[2018-07-26] MEDS ORDERED: Levothyroxine 125 MCG Tab PO SCH (07:30)
[2018-07-26] MEDS ORDERED: Lisinopril 5 MG Tab PO SCH (09:00)
[2018-07-26] MEDS ORDERED: atorvaSTATin 40 MG Tab PO SCH (09:00)
--- NOTE | 2018-07-28 08:42 | CT ---
EXAM DATE: 07/24/18 PATIENT'S AGE: 72 Patient: CHYNA LEE Facility: [facility], [facility] Site . Site : 1945 Study: CT-Head Angio [id number]/23/2018 9:01:29 PM Ordering Physician: Henry Aburto Final Report: INDICATION: Stroke-like symptoms. TECHNIQUE: CTA of the head and neck was performed after the administration of intravenous contrast. Multiplanar Maximum Intensity Projections (MIPs) were created on a separate workstation at the request of the referring physician. COMPARISON: None available. FINDINGS: Angiographic findings: The aortic arch is mildly atherosclerotic. The configuration of the brachiocephalic vessels is typical. The subclavian and innominate arteries are normal. There is a kink in the mid right cervical internal carotid artery that causes approximately 75 percent luminal stenosis. The cervical left vertebral artery is also markedly tortuous with a 360 degree loop. The common, external, and cervical internal carotid arteries are otherwise unremarkable. The intracranial internal carotid arteries are normal. An anterior communicating artery is well visualized and is normal. The anterior and middle cerebral arteries are normal. The vertebral arteries are right dominant. There is mild atherosclerotic calcification of the proximal right vertebral artery without significant stenosis. The vertebral arteries are otherwise normal. The intracranial posterior circulation is normal. There is no aneurysm or vascular malformation. Deep cerebral veins and dural venous sinuses are unremarkable. Non-angiographic findings: Ventricles are of normal size and morphology. No mass effect or midline shift is present. The visualized portions of the orbits are normal. There is no cervical lymphadenopathy. The thyroid and salivary glands are normal. The muscles of the neck are normal. Fascial planes are preserved and the deep spaces of the neck are normal. The visualized airway is widely patent. The visualized lungs are clear. The paranasal sinuses and mastoid air cells are clear. There are no suspicious lytic or blastic lesions. IMPRESSION: A kink in the mid right cervical internal carotid artery causes approximately 75 percent luminal stenosis. Otherwise no significant stenosis or occlusion of the cervical or intracranial arteries. Please note that all CT scans at this facility use dose modulation, iterative reconstruction, and/or weight-based dosing when appropriate to reduce radiation dose to as low as reasonably achievable. Dictated by Castro Figueroa MD @ Jul 24 2018 9:54PM Signed by: Castro Figueroa MD @07/24/2018 10:26:56 PM (Electronic Signature) Report Signed by Proxy. [email or web address]
--- NOTE | 2018-07-28 08:44 | US ---
EXAM DATE: 07/24/18 PATIENT'S AGE: 72 Patient: CHYNA LEE Facility: [facility] Site . Site : 1945 Study: US-Neck Angio [id number]/24/2018 10:13:57 AM Ordering Physician: Sobeida Kennedy Final Report: INDICATION: Aphasic. Rule out stroke TECHNIQUE: Conventional two-dimensional grayscale ultrasound as well as color-flow and pulsed Doppler carotid and vertebral arterial flow evaluation. COMPARISON: Neck CT angiogram performed yesterday. FINDINGS: No carotid plaque or stenosis is demonstrated. Doppler spectral analysis demonstrates peak systolic flow rate of 87 cm/sec in the right internal carotid artery and 87 cm/sec in the left. The ICA:CCA systolic flow ratio on the right is 1.3 and on the left is 1.2. Antegrade vertebral arterial flow is demonstrated bilaterally. IMPRESSION: 1. Negative for carotid artery plaque and hemodynamically significant stenosis by NASCET criteria. 2. Antegrade flow in both vertebral arteries. Dictated by Waldo Bernabe MD @ Jul 28 2018 5:09AM Signed by: Waldo Bernabe MD @07/28/2018 5:13:39 AM (Electronic Signature) Report Signed by Proxy. SHARITA
== END 2018-07-25 16:15 ==
LOC: MW.ED 18:01 → MW.MS 20:33
PROVIDERS: ADMIT Internal Medicine; ATTEND Internal Medicine
DX: I63.9 Cerebral infarction, unspecified (principal); E11.9 Type 2 diabetes mellitus without complications; I10 Essential (primary) hypertension; E78.5 Hyperlipidemia, unspecified; Z79.4 Long term (current) use of insulin; Z79.82 Long term (current) use of aspirin; Z79.899 Other long term (current) drug therapy
CPT/HCPCS: 36415; 70450; 70450-26; 70496; 70496-26; 70498; 70498-26; 71045; 71045-26; 80048; 80053; 80061; 81001; 82962; 83735; 84443; 84484; 85025; 85610; 92610-GN; 93005; 93306; 93880; 93880-26; 96374; 97165-GO; 99285-25; A9270-GY; G0378; J1815-GY; J3475; Q9967